=== PATIENT | female | born 1945 ===

== ENCOUNTER 2019-03-31 06:00 | Outpatient (RCR) | payer MEDICARE, SELFPAY | END 2019-04-05 23:59 | disposition home or self-care (01) | LOC: LAB 06:00 | PROVIDERS: Family Provider Physician Assistant Medical; Visit Provider Family Medicine | DX: I27.0 Primary pulmonary hypertension (principal); I95.1 Orthostatic hypotension; Z79.01 Long term (current) use of anticoagulants | CPT/HCPCS: 36415; 80048; 83540; 83550; 84439; 84443; 85025 ×2 ==

== ENCOUNTER 2019-04-27 10:04 | Outpatient (RCR) | payer MEDICARE, SELFPAY ==
[2019-04-27 10:38] LABS: Free T4 Free Thyroxine 1.74 ng/dL (0.82-1.77); Thyroid Stimulating Hormone 3.77 uIU/mL (0.27-4.20)
== END 2019-05-06 23:59 | disposition home or self-care (01) ==
LOC: LAB 10:04
PROVIDERS: Family Provider Physician Assistant Medical; PCP Physician Assistant Medical; Visit Provider Family Medicine
DX: I27.0 Primary pulmonary hypertension (principal)
CPT/HCPCS: 84439; 84443